=== PATIENT | female | born 1980 | race Caucasian/White ===

== ENCOUNTER 2016-10-08 15:55 | Emergency (ER) | payer BC ==
[2016-10-08] MEDS ORDERED: Aspirin Low Dose CHEW TAB* 81 MG PO ONE (15:58)
--- NOTE | 2016-10-08 15:58 | UC ---
Cardiac HPI - HPI Summary HPI Summary: 36 YEAR OLD FEMALE PRESENTS WITH LEFT SIDED CHEST PAIN. - History of Current Complaint Stated Complaint: chest pain Time Seen by Provider: 10/08/16 15:56 Hx Obtained From: Patient Hx Last Menstrual Period: 12/07/15 Onset/Duration: Sudden Onset Timing: Constant Initial Severity: Moderate Current Severity: Moderate Aggravating: Movement Alleviating: Rest Associated Signs & Symptoms: Positive: Chest Pain - Allergy/Home Medications Allergies/Adverse Reactions: Allergies Allergy/AdvReac Type Severity Reaction Status Date / Time Latex Allergy Blisters Verified 10/08/16 16:10 Home Medications: Home Medications [id number] [Excedrin Extra Strength] 2 tab PO ONCE PRN 10/08 [History Confirmed 10/08/16] PMH/Surg Hx/FS Hx/Imm Hx Previously Healthy: Yes - Surgical History Surgical History: Yes Surgery Procedure, Year, and Place: Right benign masses of breast removed 02/2013 - Family History Known Family History: Negative: Cardiac Disease, Hypertension, Diabetes - Social History Alcohol Use: Rare Substance Use Type: None Smoking Status (MU): Never Smoked Tobacco Have You Smoked in the Last Year: No Review of Systems Constitutional: Negative Skin: Negative Eyes: Negative ENT: Negative Respiratory: Negative Cardiovascular: Chest Pain Gastrointestinal: Negative Genitourinary: Negative Motor: Negative Neurovascular: Negative Musculoskeletal: Negative Neurological: Negative Psychological: Negative All Other Systems Reviewed And Are Negative: Yes Physical Exam Triage Information Reviewed: Yes Appearance: Well-Appearing Vital Signs Reviewed: Yes Eye Exam: Normal ENT Exam: Normal Dental Exam: Normal Neck exam: Normal Neck: Positive: 1 Respiratory Exam: Normal Cardiovascular Exam: Normal Abdominal Exam: Normal Musculoskeletal Exam: Normal Neurological Exam: Normal Psychological Exam: Normal Skin Exam: Normal - Clinical Impression Provider Diagnoses: LEFT CHEST PAIN Discharge - Discharge Plan Condition: Guarded Disposition: AGAINST MEDICAL ADVICE Patient Education Materials: Chest Pain (ED) Referrals: Marilou Ramsey [Primary Care Provider] - Additional Instructions: PLEASE GO TO ER TO RULE OUT AK. EMS REFUSED.
[2016-10-08 16:10] VITALS: BP 111/72
== END 2016-10-08 16:27 | disposition left against medical advice (07) ==
LOC: UCCORT 15:55
DX: R07.9 Chest pain, unspecified (principal); Z91.040 Latex allergy status
CPT/HCPCS: 93005; 99212; A9270-GY; G0463

== ENCOUNTER 2017-01-24 09:52 | Emergency (ER) | payer BC ==
[2017-01-24 10:28] VITALS: BP 135/64
--- NOTE | 2017-01-24 11:06 | UC ---
Respiratory Complaint HPI - HPI Summary HPI Summary: 36 female presents to the urgent care c/o nasal congestion, low grade fever, tire, dry cough for the past week. Pt reports she has had 2 episodes of diarrhea yesterday. she also has had nausea in the mornings. LMP: just ended. Her had a vasectomy 7 years ago. Pt has not taking anything to alleviating symptoms. Diarrhea resolved yesterday. She doesn't like to take the influenza vaccine since she gets sick all the time. Pt denies SOB, chest pain, abdominal pain, Vomiting. Pt works at [employer] and many of the student are sick with similar symptoms. - History of Current Complaint Chief Complaint: UCRespiratory Stated Complaint: SORE THROAT HEADACHE WEAK NAUSEA Time Seen by Provider: 01/24/17 10:48 Hx Obtained From: Patient Hx Last Menstrual Period: just ened 01/23 Onset/Duration: Gradual Onset, Lasting Weeks - 1 week, Still Present Severity Initially: Mild Severity Currently: Moderate Pain Intensity: 4 - headache Pain Scale Used: 0-10 Numeric Character: Cough: Nonproductive Aggravating Factors: Recumbent Position Alleviating Factors: Nothing Associated Signs And Symptoms: Positive: Fever, URI, Nasal Congestion - Risk Factors Pulmonary Embolism Risk Factors: Negative Cardiac Risk Factors: Negative Pseudomonas Risk Factors: Negative Tuberculosis Risk Factors: Negative - Allergies/Home Medications Allergies/Adverse Reactions: Allergies Allergy/AdvReac Type Severity Reaction Status Date / Time Latex Allergy Blisters Verified 10/08/16 16:10 PMH/Surg Hx/FS Hx/Imm Hx Previously Healthy: Yes - Pt denies PMHX - Surgical History Surgical History: Yes Surgery Procedure, Year, and Place: Right benign masses of breast removed 02/2013 - Family History Known Family History: Positive: None - Pr denies FMHX Negative: Cardiac Disease, Hypertension, Diabetes - Social History Occupation: Employed Full-time Lives: With Family Alcohol Use: Rare Substance Use Type: None Smoking Status (MU): Never Smoked Tobacco Have You Smoked in the Last Year: No Review of Systems Constitutional: Fever Skin: Negative Eyes: Negative ENT: Sore Throat, Ear Ache, Nasal Discharge - with clear nasal discharge Respiratory: Cough - dry Cardiovascular: Negative Gastrointestinal: Diarrhea - 2 episode which have resolved, Nausea - in the morning on and off Genitourinary: Negative Motor: Negative Neurovascular: Negative Musculoskeletal: Negative Neurological: Headache Psychological: Negative Is Patient Immunocompromised?: No All Other Systems Reviewed And Are Negative: Yes Physical Exam Triage Information Reviewed: Yes Vital Signs: Initial Vital Signs Temp 97.7 F 01/24/17 10:23 Pulse 96 01/24/17 10:23 Resp 16 01/24/17 10:23 BP 135/64 01/24/17 10:23 Pulse Ox 97 01/24/17 10:23 - Additional Comments VITAL SIGNS: Reviewed. GENERAL: Patient is a well developed and nourished female who is sitting comfortable in the examining table. Patient is not in any acute respiratory distress. HEAD AND FACE: No signs of trauma. No ecchymosis, hematomas or skull depressions. No sinus tenderness. edematous erythematous nasal mucosa, Positive clear post nasal drip. EYES: PERRLA, EOMI x 2, No injected conjunctiva, clear watery eyes, no nystagmus. No photophobia. EARS: Hearing grossly intact. Ear canals and tympanic membranes are within normal limits. MOUTH: pharynx with no erythema, no exudates,no palatal petechiae. no B/L tonsillar enlargement Uvula in midline. NECK: Supple, trachea is midline, Positive anterior cervical lymphadenopathy, no JVD, no carotid bruit, no c-spine tenderness, neck with full ROM. No meningeal signs, no Kernig's or brudzinskis signs. CHEST: Symmetric, no tenderness at palpation LUNGS: Clear to auscultation bilaterally. No wheezing or crackles. CVS: Regular rate and rhythm, S1 and S2 present, no murmurs or gallops appreciated. ABDOMEN: Soft, non-tender. No signs of distention. No rebound no guarding, and no masses palpated. Bowel sounds are normal. EXTREMITIES: FROM in all major joints, no edema, no cyanosis or clubbing. NEURO: Alert and oriented x 3. No acute neurological deficits. Speech is normal and follows commands. SKIN: Dry and warm UC Diagnostic Evaluation - Laboratory O2 Sat by Pulse Oximetry: 97 Respiratory Course/Dx - Course Course Of Treatment: 36 female presents to the urgent care c/o nasal congestion , low grade fever, tire, dry cough for the past week. Pt reports she has had 2 episodes of diarrhea yesterday. she also has had nausea in the mornings. LMP: just ended. Her had a vasectomy 7 years ago. Pt has not taking anything to alleviating symptoms. Diarrhea resolved yesterday. She doesn't like to take the influenza vaccine since she gets sick all the time. Pt denies SOB, chest pain, abdominal pain, Vomiting. Pt works at [employer] and many of the student are sick with similar symptoms. Hx obtaeind. Pt with urpper respiratory infection of examination. Pt Rx ibuprofen PO to alleviate QUIJANO and sore throat. Advised on hand washing to avoid spreading. Pt advised to rest , eat well and avoid strenuous exercise. If symptoms do not improve or worsen advised to return to the urgent care or f/u with her PCP for further evaluation and treatment. Pt understood and agreed - Differential Dx/Diagnosis Differential Diagnosis/HQI/PQRI: Asthma, Bronchitis, Influenza, Laryngitis, Lower Resp Infection, Sinusitis, Other - upper respiratory infection, pharyngitis, mononucleosis Provider Diagnoses: 1- Upper respiratory infection Discharge - Discharge Plan Condition: Stable Disposition: HOME Prescriptions: Ibuprofen TAB* [Motrin TAB* 600 MG] 600 mg PO Q6H PRN #20 tab PRN Reason: Headache Patient Education Materials: Upper Respiratory Infection (ED) Forms: *Work Release Referrals: No Primary Care Phys,NOPCP [Primary Care Provider] - [facility] [place] [facility] [Outside] - If Needed Additional Instructions: 1-Please take ibuprofen PO q6-8hrs prn as instructed after meals to alleviate QUIJANO and sore throat. Increase fluid intake, eat well, rest and avoid strenuous exercise 2-If symptoms do not improve or worsen please return to the urgent care or f/u with your PCP for further evaluation and treatment.
== END 2017-01-24 11:15 | disposition home or self-care (01) ==
LOC: UCEAST 09:52
DX: J06.9 Acute upper respiratory infection, unspecified (principal)
CPT/HCPCS: 99212; G0463

== ENCOUNTER 2017-04-08 12:47 | Emergency (ER) | payer BC ==
[2017-04-08 13:54] VITALS: BP 115/68
--- NOTE | 2017-04-08 15:09 | UC ---
Respiratory Complaint HPI - HPI Summary HPI Summary: sore throat, nonprod cough, diffuculty swallowing, nasal congestion, since . denies fever/chills - History of Current Complaint Chief Complaint: UCRespiratory Stated Complaint: RESPIRATORY Time Seen by Provider: 04/08/17 15:07 Hx Obtained From: Patient Hx Last Menstrual Period: 03/30/17 Onset/Duration: Sudden Onset Severity Initially: Moderate Severity Currently: Moderate Pain Intensity: 7 Character: Cough: Nonproductive Associated Signs And Symptoms: Positive: Negative - Risk Factors Pulmonary Embolism Risk Factors: Negative Cardiac Risk Factors: Negative Pseudomonas Risk Factors: Negative Tuberculosis Risk Factors: Negative - Allergies/Home Medications Allergies/Adverse Reactions: Allergies Allergy/AdvReac Type Severity Reaction Status Date / Time latex Allergy Blisters Verified 04/08/17 13:50 PMH/Surg Hx/FS Hx/Imm Hx Previously Healthy: Yes - Surgical History Surgical History: Yes Surgery Procedure, Year, and Place: Right benign masses of breast removed 02/2013 - Family History Known Family History: Positive: None - Pr denies FMHX Negative: Cardiac Disease, Hypertension, Diabetes - Social History Occupation: Employed Full-time Lives: With Family Alcohol Use: Rare Substance Use Type: None Smoking Status (MU): Never Smoked Tobacco Have You Smoked in the Last Year: No Review of Systems Constitutional: Negative Skin: Negative Eyes: Negative ENT: Sore Throat, Ear Ache, Sinus Congestion Respiratory: Cough - nonprod Cardiovascular: Negative Gastrointestinal: Negative Genitourinary: Negative Musculoskeletal: Negative Neurological: Negative Psychological: Negative All Other Systems Reviewed And Are Negative: Yes Physical Exam Triage Information Reviewed: Yes Appearance: Ill-Appearing Vital Signs: Initial Vital Signs Temp 99.1 F 04/08/17 13:50 Pulse 97 04/08/17 13:50 Resp 18 04/08/17 13:50 BP 115/68 04/08/17 13:50 Pulse Ox 99 04/08/17 13:50 Vital Signs Reviewed: Yes Eye Exam: Normal ENT: Positive: Pharyngeal erythema, Nasal congestion, TM bulging - brijesh, Hoarse voice Respiratory Exam: Normal Cardiovascular Exam: Normal Neurological Exam: Normal Psychological Exam: Normal Skin Exam: Normal UC Diagnostic Evaluation - Laboratory O2 Sat by Pulse Oximetry: 99 Respiratory Course/Dx - Course Course Of Treatment: take abx as directed - with food to reduce gi upset. strep - via exam. increase fluid intake daily while on abx to prevent dehydration. take ibuprofen or tylenol every 4-6 hrs prn pain/fever - dose as directed on bottle. f/u if symptoms not resolving - Differential Dx/Diagnosis Provider Diagnoses: strep throat/sinusitis Discharge - Discharge Plan Condition: Good Disposition: HOME Prescriptions: Amoxicillin PO (*) [Amoxicillin 875 MG (*)] 875 mg PO BID 10 Days #20 tab Patient Education Materials: Sinusitis (ED), Strep Throat (ED) Referrals: No Primary Care Phys,NOPCP [Primary Care Provider] - 1 Week (pcp referral )
== END 2017-04-08 15:29 | disposition home or self-care (01) ==
LOC: UCCORT 12:47
DX: Z91.040 Latex allergy status (principal); J02.0 Streptococcal pharyngitis; J32.9 Chronic sinusitis, unspecified
CPT/HCPCS: 99212; G0463

== ENCOUNTER 2017-06-17 10:05 | Emergency (ER) | payer BC ==
--- OUTSIDE RECORDS SUMMARY | 2017-06-17 10:14 | XMS REPORT ---
:1980 External Reference #:[id number] Author Organization [facility] Address [address] [place] [address] Phone [phone] Care Team Providers Name Role Phone HCP given Primary Care Physician Unavailable Payers Type Date Identification Numbers Payment Provider Subscriber Health Maintenance Policy Number: [id number] Vladimir Alcocer Organization (HMO) PayID: [id number] [address] [place] [address] Problems Description No Information Family History Date Family Member(s) Problem(s) Comments General Emotional Problems Mother's side of family Mother Emotional Problems Children 2 sons: Adis born 06/01/97; Sylvester born 08/25/00 Siblings 2 1 brother 1 sister Maternal Grandfather Alcoholism Maternal Grandfather Cancer Maternal Grandmother Cancer Maternal Grandmother Emotional Problems Social History Type Date Description Comments Education Highest Level Completed Trade School Education Highest Level Completed College Marital Status Lives With Sons x 2 Lives With Diet Healthy, Well Balanced Sleep Typically sleeps 6 hours a night Smoke-Free Home is smoke-free Smoke-Free Work is smoke-free Pets None Occupation [employer] Work Status Currently Working Hand Dominance Right-handed Abuse No history of abuse Cigarette Use Denies Cigarette Use ETOH Use Rarely consumes alcohol Recreational Drug Use Denies Drug Use Smoking Non Smoker Daily Caffeine Consumes on average 2 cups of coffee per day Exercise Type/Frequency Exercises regularly Sun Exposure Does not use sunscreen Seat Belt/Car Seat always uses seat belt Guns in Home No Smoke Alarms Yes smoke alarm Currently Active Patient is currently sexually active Contraceptive Methods Vasectomy Age 1st [place] 14 Years Old Allergies, Adverse Reactions, Alerts Date Description Reaction Status Severity Comments 02/06/2017 Latex Blisters active Moderate Medications Medication Date Status Form Strength Qnty SIG Indications Ordering Provider Phendimetrazine 06/12/ Active Caps ER 105mg 30cap 1 qam for E66.3 Silcoff, Tartrate ER 2018 24HR s weight loss Bri Lucero Phentermine HCL 03/16/ Active Capsules 15mg 60cap 2 in the E66.3 Silcoff, 2018 s morning or Nic can split M.D. the dose to 1 qam/q-after noon for weight management Multivitamin 02/05/ Active 2 po daily Unknown 2016 Vitamin B12 02/05/ Active 2 po daily Unknown 2016 Amoxicillin 04/08/ Hx Tablets 875mg 20tab 1 tablet by Unknown 2018 - s mouth twice 04/18/ daily x 10 2017 days Vital Signs Date Vital Result Comment 06/12/2017 BP Systolic 110 mmHg BP Diastolic 70 mmHg Weight 171.00 lb 05/15/2017 BP Systolic 108 mmHg BP Diastolic 72 mmHg Height 64 inches 5'4" Weight 171.00 lb BMI (Body Mass Index) 29.3 kg/m2 04/13/2017 BP Systolic 100 mmHg BP Diastolic 70 mmHg Heart Rate 90 /min Weight 176.00 lb 03/16/2017 BP Systolic 100 mmHg BP Diastolic 70 mmHg Weight 182.00 lb 02/06/2017 BP Systolic 104 mmHg BP Diastolic 66 mmHg Weight 186.00 lb 12/29/2016 BP Systolic 108 mmHg BP Diastolic 80 mmHg Height 64 inches 5'4" Weight 183.00 lb BMI (Body Mass Index) 31.4 kg/m2 Results Test Date Test Result H/L Range Note CBC Auto Diff 02/02/2017 White Blood Count 7.1 10^3/uL 3.5-10.8 Red Blood Count 4.34 10^6/uL 4.0-5.4 Hemoglobin 13.2 g/dL 12.0-16.0 Hematocrit 37 % 35-47 Mean Corpuscular Volume 86 fL 80-97 Mean Corpuscular Hemoglobin 31 pg 27-31 Mean Corpuscular HGB Conc 36 g/dL 31-36 Red Cell Distribution Width 13 % 10.5-15 Platelet Count 397 10^3/uL 150-450 Mean Platelet Volume 8 um3 7.4-10.4 Abs Neutrophils 4.9 10^3/uL 1.5-7.7 Abs Lymphocytes 1.6 10^3/uL 1.0-4.8 Abs Monocytes 0.3 10^3/uL 0-0.8 Abs Eosinophils 0.2 10^3/uL 0-0.6 Abs Basophils 0.1 10^3/uL 0-0.2 Abs Nucleated RBC 0 10^3/uL Granulocyte % 69.3 % 38-83 Lymphocyte % 22.5 % Low 25-47 Monocyte % 4.4 % 1-9 Eosinophil % 2.5 % 0-6 Basophil % 1.3 % 0-2 Nucleated Red Blood Cells % 0 Comp Metabolic Panel 02/02/2017 Sodium 135 mmol/L 133-145 Potassium 4.4 mmol/L 3.5-5.0 Chloride 102 mmol/L 101-111 Co2 Carbon Dioxide 26 mmol/L 22-32 Anion Gap 7 mmol/L 2-11 Glucose 90 mg/dL 70-100 Blood Urea Nitrogen 10 mg/dL 6-24 Creatinine 0.78 mg/dL 0.51-0.95 BUN/Creatinine Ratio 12.8 8-20 Calcium 9.1 mg/dL 8.6-10.3 Total Protein 6.9 g/dL 6.4-8.9 Albumin 4.3 g/dL 3.2-5.2 Globulin 2.6 g/dL 2-4 Albumin/Globulin Ratio 1.7 1-3 Total Bilirubin 0.50 mg/dL 0.2-1.0 Alkaline Phosphatase 44 U/L 34-104 Alt 17 U/L 7-52 Ast 16 U/L 13-39 Egfr Non- 82.7 >60 Egfr 106.3 >60 1 Laboratory test finding 02/02/2017 TSH (Thyroid Stim Horm) 2.02 mcIU/mL 0.34-5.60 Lipid Profile 02/02/2017 Triglycerides 135 mg/dL 2 (Trig/Chol/HDL) Cholesterol 153 mg/dL 3 HDL Cholesterol 42.8 mg/dL 4 LDL Cholesterol 83 mg/dL 5 1 Because ethnic data is not always readily available, this report includes an eGFR for both -Americans and non- Americans. The National Kidney Disease Education Program (NKDEP) does not endorse the use of the MDRD equation for patients that are not between the ages of 18 and 70, are , have extremes of body size, muscle mass, or nutritional status, or are non- or non-. According to the National Kidney Foundation, irrespective of diagnosis, the stage of the disease is based on the level of kidney function: Stage Description GFR(mL/min/1.73 m(2)) 1 Kidney damage with normal or decreased GFR 90 2 Kidney damage with mild decrease in GFR 60-89 3 Moderate decrease in GFR 30-59 4 Severe decrease in GFR 15-29 5 Kidney failure <15 (or dialysis) 2 Desirable: <150 Borderline High: 150-199 High: 200-499 Very High: >500 3 Desirable: <200 Borderline High: 200-239 High: >239 4 Low: <40 Desirable: 40-60 High: >60 5 Desirable: <100 Near Optimal: 100-129 Borderline High: 130-159 High: 160-189 Very High: >189 Procedures Date CPT Code Description Status 12/29/2016 58820 Electrocardiogram Complete Completed Encounters Type Date Location Provider CPT E/M Dx Office Visit 06/12/2017 4:00p Main [facility] 35448 E66.3 Z71.3 Z68.29 Office Visit 05/15/2017 4:00p Main Office [facility] 17586 E66.3 Z71.3 Office Visit 04/13/2017 4:20p Main Office [facility] 68554 Z71.3 Z68.30 Office Visit 03/16/2017 8:40a Main Office [facility] 69169 R63.5 F41.9 Z63.79 Z71.3 Office Visit 02/06/2017 9:00a Main Office [facility] 30089 F41.9 G47.9 R63.5 Office Visit 12/29/2016 8:00a Main Office [facility] 70152 R07.89 F41.9 Z13.220 R63.5 Z72.820 Z68.30 Plan of Care Future Appointment(s):07/13/2017 3:40 pm - [facility] at [id number] - [facility]E66.3 OverweightNew Medication:Phendimetrazine Tartrate ER 105 mgComments:Discussed the new medication and switching off of phentermine for a month at least to take a break.Reviewed SEs and benefits of phendimetrazine. pt stated understandingFollow up:Monitor calories in beverages Increase waLKING again, cont good food [id number] Dietary counseling and [id number] Body mass index (BMI) 29.0-29.9, adult
[2017-06-17 10:56] VITALS: BP 105/83
--- NOTE | 2017-06-17 12:22 | UC ---
UC Dental HPI - HPI Summary HPI Summary: Left sided facial swelling coming up from a broken tooth on the left upper bicuspid. Had a near syncopal episode this morning in the bathroom - History of Current Complaint Chief Complaint: UCDentalProblem Stated Complaint: ORAL COMPLAINT/FACIAL SWELLING Time Seen by Provider: 06/17/17 12:13 Hx Obtained From: Patient Hx Last Menstrual Period: 2 days over due Onset/Duration: Sudden Onset, Lasting Hours - 5, Worse Since - onset Severity: Severe Pain Intensity: 10 Aggravating Factor(s): Nothing Alleviating Factor(s): Nothing Related History: Previous Dental Care on Same Tooth - Allergies/Home Medications Allergies/Adverse Reactions: Allergies Allergy/AdvReac Type Severity Reaction Status Date / Time latex Allergy Blisters Verified 06/17/17 10:56 Home Medications: Home Medications Cyanocobalamin TAB* [Vitamin B12 TAB*] 200 mcg PO DAILY 06/17/17 [History Confirmed 06/17/17] Ibuprofen TAB* [Motrin TAB* 600 MG] 800 mg PO Q8H PRN 06/17/17 [History Confirmed 06/17/17] Multivitamins/Minerals TAB* [Theragran/minerals TAB*] 1 tab PO DAILY 06/17/17 [ History Confirmed 06/17/17] PMH/Surg Hx/FS Hx/Imm Hx Previously Healthy: Yes - Surgical History Surgical History: Yes Surgery Procedure, Year, and Place: Right benign masses of breast removed 02/2013 - Family History Known Family History: Positive: Hypertension, Diabetes Negative: Cardiac Disease - Social History Occupation: Employed Full-time Lives: With Family Alcohol Use: Rare Substance Use Type: None Smoking Status (MU): Never Smoked Tobacco Have You Smoked in the Last Year: No Review of Systems Constitutional: Chills, Fatigue ENT: Dental Pain Is Patient Immunocompromised?: No All Other Systems Reviewed And Are Negative: Yes Physical Exam Triage Information Reviewed: Yes Appearance: Well-Nourished, Ill-Appearing, Pain Distress Vital Signs: Initial Vital Signs Temp 98.8 F 06/17/17 10:46 Pulse 102 06/17/17 10:46 Resp 20 06/17/17 10:46 BP 105/83 06/17/17 10:46 Pulse Ox 100 06/17/17 10:46 Vital Signs Reviewed: Yes Eyes: Positive: Conjunctiva Clear ENT: Positive: Pharynx normal, TMs normal Dental: Positive: Dental Fracture @ - #11 and #12, Abscess @ - #12 extending up to the cheek Neck exam: Normal Respiratory Exam: Normal Cardiovascular Exam: Normal Musculoskeletal Exam: Normal Neurological Exam: Normal Psychological Exam: Normal Skin Exam: Normal Dental Complaint Course/Dx - Differential Dx/Diagnosis Differential Diagnosis/Dx: Dental Abscess, Dental Caries, Fractured Tooth, Pharyngitis Provider Diagnoses: Dental Abscess Discharge - Sign-Out/Discharge Documenting (check all that apply): Discharge/Admit/Transfer - Discharge Plan Condition: Stable Disposition: HOME Prescriptions: Amoxicillin/Clavulanate TAB* [Augmentin TAB 875*] 875 mg PO BID #20 tab Fluconazole [Fluconazole 150 mg tab] 150 mg PO ONCE #1 tab Patient Education Materials: Dental Abscess (ED), Amoxicillin/Clavulanate Potassium (By mouth) Referrals: Non Staff,Doctor [Primary Care Provider] - Additional Instructions: Take 1 imodium (or generic) with each augmentin to stop any diarrhea - Billing Disposition and Condition Condition: STABLE Disposition: HOME
== END 2017-06-17 12:36 | disposition home or self-care (01) ==
LOC: UCCORT 10:05
DX: K04.7 Periapical abscess without sinus (principal)
CPT/HCPCS: 99212; G0463

== ENCOUNTER 2017-06-18 08:01 | Emergency (ER) | payer BC ==
[2017-06-18] MEDS ORDERED: Ketorolac INJ* 60 MG/2 ML VIAL IM ONE (08:42)
--- NOTE | 2017-06-18 09:04 | ED ---
Throat Pain/Nasal Congestion - HPI Summary HPI Summary: 28 female presents ED with complaints of left-sided dental pain swelling. Patient states this began about a week ago when she fractured a tooth while eating some food. Patient has dental caries in the tooth. Side dentist and placed on amoxicillin and given ibuprofen for week supply in which she completed. Symptoms were relieved and improved however 2 days after not taking antibiotic patient symptoms returned. Seen at urgent care yesterday given Augmentin has only had 2 pills. States swelling has increased in the left maxillary area and pain hasn't increased. Has not taken any medications today. No discharge, erythema or palpable abscess. No fever, chills, nausea, vomiting. No other past medical history. No other complaints or concerns. No trouble breathing, trouble swallowing - History of Current Complaint Chief Complaint: EDDentalPain Time Seen by Provider: 06/18/17 08:12 Hx Obtained From: Patient Onset/Duration: Sudden Onset, Lasting Weeks, Still Present, Worse Since Severity: Moderate Associated Signs And Symptoms: Positive: Negative Cough: None - Allergies/Home Medications Allergies/Adverse Reactions: Allergies Allergy/AdvReac Type Severity Reaction Status Date / Time latex Allergy Blisters Verified 06/18/17 08:07 PMH/Surg Hx/FS Hx/Imm Hx Endocrine/Hematology History: Denies: Hx Diabetes Cardiovascular History: Denies: Hx Hypertension, Hx Valvular Heart Disease Respiratory History: Denies: Hx Asthma GI History: Reports: Other GI Disorders - acid reflux this last year History: Reports: Other Problems/Disorders - Hx of UTI's since 15 years ago. Pt denies any known conditions of her kidne - Surgical History Surgery Procedure, Year, and Place: Right benign masses of breast removed 02/2013 - Immunization History Immunizations Up to Date: Yes Infectious Disease History: No Infectious Disease History: Denies: History Other Infectious Disease, Traveled Outside the [place] in Last 30 Days - Family History Known Family History: Positive: None - Pr denies FMHX, Hypertension, Diabetes Negative: Cardiac Disease - Social History Alcohol Use: Rare Substance Use Type: Reports: None Smoking Status (MU): Never Smoked Tobacco Have You Smoked in the Last Year: No Review of Systems Constitutional: Negative Eyes: Negative Positive: Dental Pain Cardiovascular: Negative Respiratory: Negative Gastrointestinal: Negative Skin: Negative Neurological: Negative All Other Systems Reviewed And Are Negative: Yes Physical Exam Triage Information Reviewed: Yes Vital Signs On Initial Exam: Initial Vitals Temp Pulse Resp BP Pulse Ox 97.1 F 93 16 119/79 100 06/18/17 08:03 06/18/17 08:03 06/18/17 08:03 06/18/17 08:03 06/18/17 08:03 Vital Signs Reviewed: Yes Appearance: Positive: Well-Appearing, No Pain Distress, Well-Nourished Skin: Positive: Warm, Skin Color Reflects Adequate Perfusion, Dry. Negative: Cold, Numb, Cyanosis @, Erythema @ Head/Face: Positive: Other - Normal head and face inspection other than moderate amount of edema to the left maxillary/side face without erythema or palpable abscess. Tender to palpation.. Negative: Temporal Artery Tenderness, TMJ Tenderness, Scalp Eyes: Positive: Normal, EOMI, JODY, Conjunctiva Clear ENT: Positive: Normal ENT inspection, Hearing grossly normal, Pharynx normal, TMs normal, Uvula midline - Airway patent no sign of peritonsillar abscess. Negative: Nasal congestion, Nasal drainage, Tonsillar swelling, Tonsillar exudate, Sinus tenderness Dental: Positive: Percussion Tenderness @ - Left maxillary, Gross Decay/Caries @ , Dental Fracture @ - Tooth #13, Other - Edema over her left maxillary area and side of face as discussed above tender to touch tooth #13. Negative: Abscess @ - Not appreciated, Cellulitis @, Cervical Lymphadenopathy, Bleeding Neck: Positive: Supple, Nontender, No Lymphadenopathy Respiratory/Lung Sounds: Positive: Clear to Auscultation, Breath Sounds Present. Negative: Rales, Rhonchi, Tracheal Deviation, Wheezes Cardiovascular: Positive: Normal, RRR, Pulses are Symmetrical in both Upper and Lower Extremities. Negative: Murmur, Rub Abdomen Description: Positive: Soft Bowel Sounds: Positive: Present Musculoskeletal: Positive: Normal, Strength/ROM Intact Neurological: Positive: Normal, Sensory/Motor Intact, Alert, Oriented to Person Place, Time Diagnostics - Vital Signs Vital Signs Temp Pulse Resp BP Pulse Ox 06/18/17 08:03 97.1 F 93 16 119/79 100 - Laboratory Result Diagrams: 06/18/17 09:00 06/18/17 09:00 Lab Statement: Any lab studies that have been ordered have been reviewed, and results considered in the medical decision making process. - CT maxillofacial CT Interpretation: Positive (See Comments) - : MILDLY LIMITED EXAMINATION THIS EXAM WAS PERFORMED WITHOUT INTRAVENOUS CONTRAST. THERE IS SUBCUTANEOUS EDEMA AND SKIN INDURATION IN THE LEFT MAXILLARY REGION EXTENDING TO THE PRESEPTAL SOFT TISSUES OF THE LEFT ORBIT. THERE IS NO POST SEPTAL INVOLVEMENT. THERE IS NO LOCALIZED ABSCESS INVOLVEMENT. CT Interpretation Completed By: Radiologist Re-Evaluation - Re-Evaluation First Eval Re-Evaluation Time: 09:30 Change: Improved - Had some relief from Toradol updated on CT and labs ready to be DC'd. Aware of plan agrees and understands. EENT Course/Dx - Course Course Of Treatment: Labs and CT obtained due to recurrent symptoms after treatment. Labs unremarkable CT showed a cellulitis with edematous changes. Appears to be an infection from dental complications/possible abscess. Will treat with clindamycin, discontinue Augmentin. Given Toradol while in the ER had relief. Recommend cool compresses, saltwater gargles, and good oral hygiene. Continue naproxen starting tomorrow and she had Toradol that is enough for today. Patient agrees and understands plan. Normal vitals and physical exam otherwise. No other concerns. Has a dentist appointment, morning at 8 AM. Aware worsening signs and symptoms watch out for. Follow-up. - Differential Diagnoses Differential Diagnoses: Cellulitis, Dental Abscess, Dental Caries, Fractured Tooth, Trauma - Diagnoses Provider Diagnoses: Dental abscess, Cellulitis, Fractured tooth Discharge - Sign-Out/Discharge Documenting (check all that apply): Discharge/Admit/Transfer - Discharge Plan Condition: Good Disposition: HOME Prescriptions: Clindamycin Cap(NF) [Clindamycin Cap 300 mg Cap(NF)] 300 mg PO TID #29 cap Naproxen [Naproxen 375 mg tab] 375 mg PO BID PRN #25 tablet.dr CHOUDHURY Reason: Pain Patient Education Materials: Dental Abscess (ED), Cellulitis (ED) Referrals: Dillon Barrios MD [Primary Care Provider] - Adrian Roman MD [Doctor of Dental Medicine] - Additional Instructions: Take prescribed medication as directed, do not miss a dose. Take probiotics in between doses, and eat swiss yogurt as discussed to replenish normal chevy. Discontinue taking the augmentin. Salt water gargles, increase fluids, good oral hygiene. Cool compresses. Naproxen as prescribed to help with pain and inflammation, take with food. Follow up with dentist tomorrow. Any new or worsening symptoms please seek medical attention promptly. - Billing Disposition and Condition Condition: GOOD Disposition: HOME
--- NOTE | 2017-06-18 09:09 | RAD ---
INDICATION: Facial swelling COMPARISON: None TECHNIQUE: Axial source images were acquired from the vertex of the mandible through the orbits. Coronal and sagittal reconstructed images were acquired. The examination was ordered through the emergency department without intravenous contrast. FINDINGS: Bones: There is no acute facial bone fracture. Orbits: The globes and intraconal structures appear intact. There is preseptal soft tissue swelling. The optic nerves are symmetric. Extraocular muscles appear normal. There is no intraconal inflammatory change or retrobulbar mass.. Paranasal sinuses: There is mild circumferential mucosal thickening in the left maxillary antrum consistent with chronic sinusitis. The remainder the paranasal sinuses are clear. Brain: There are no acute abnormalities of the visualized brain parenchyma. Soft tissues: There is skin induration and there is simultaneous edema in the left maxillary region extending to the left orbital preseptal space. The findings are most consistent with cellulitis. There are no localized findings to suggest abscess. Other: None The visualized soft tissue elements about the neck appear normal. IMPRESSION: MILDLY LIMITED EXAMINATION THIS EXAM WAS PERFORMED WITHOUT INTRAVENOUS CONTRAST. THERE IS SUBCUTANEOUS EDEMA AND SKIN INDURATION IN THE LEFT MAXILLARY REGION EXTENDING TO THE PRESEPTAL SOFT TISSUES OF THE LEFT ORBIT. THERE IS NO POST SEPTAL INVOLVEMENT. THERE IS NO LOCALIZED ABSCESS INVOLVEMENT.
[2017-06-18 09:10] LABS: ABS Basophils 0.1 10^3/ul (0-0.2); ABS Eosinophils 0.2 10^3/ul (0-0.6); ABS Lymphocytes 1.6 10^3/ul (1.0-4.8); ABS Monocytes 0.5 10^3/ul (0-0.8); ABS Neutrophils 6.1 10^3/ul (1.5-7.7); ABS Nucleated RBC 0 10^3/ul; Hematocrit 37 % (35-47); Hemoglobin 13.3 g/dl (12.0-16.0); Lymphocyte % 18.9 % (25-47); Mean Corpuscular HGB Conc 36 g/dl (31-36); Mean Corpuscular Hemoglobin 31 pg (27-31); Mean Corpuscular Volume 86 fL (80-97); Mean Platelet Volume 6.9 um3 (7.4-10.4); Nucleated Red Blood Cells % 0; Platelet Count 438 10^3/ul (150-450); Red Blood Count 4.34 10^6/ul (4.0-5.4); Red Cell Distribution Width 13 % (10.5-15); White Blood Count 8.4 10^3/ul (3.5-10.8)
[2017-06-18 09:26] LABS: EGFR Non-African American 75.9 (>60)
[2017-06-18] MEDS ORDERED: Clindamycin CAP* 150 MG PO ONE (09:31)
[2017-06-18 10:11] VITALS: BP 107/84
== END 2017-06-18 09:52 | disposition home or self-care (01) ==
LOC: ED 08:01
DX: K04.7 Periapical abscess without sinus (principal); S02.5XXA Fracture of tooth (traumatic), initial encounter for closed fracture; K02.9 Dental caries, unspecified; X58.XXXA Exposure to other specified factors, initial encounter; Y92.9 Unspecified place or not applicable
CPT/HCPCS: 36415; 70486; 80048; 83605; 85025; 96372; 99282; A9270-GY; J1885

== ENCOUNTER → 2017-06-18 20:00 | Emergency (ER) | payer BC ==
[2017-06-18 23:53] VITALS: BP 000/00
== END | disposition left against medical advice (07) ==
LOC: ED 20:00
DX: R22.0 Localized swelling, mass and lump, head (principal); Z53.21 Procedure and treatment not carried out due to patient leaving prior to being seen by health care provider

== ENCOUNTER 2018-04-09 12:19 | Emergency (ER) | payer BC ==
--- NOTE | 2018-04-09 12:30 | UC ---
Throat Pain/Nasal Poli HPI - HPI Summary HPI Summary: 37 yo female presents with sinus pain/pressure/congestion for the last week. Over the last two days has felt fatigue and had a "low grade fever" of around 100F that resolves with tylenol/ibuprofen. She works at [employer] and many of the students have been sick with strep, mono, and the flu. She is concerned about these today. She denies sore throat, cough, SOB, abdominal pain , n/v, dysuria. She is eating and drinking well. - History of Current Complaint Stated Complaint: HEAD CONGESTION COUGH HEADACHE FEVER Time Seen by Provider: 04/09/18 12:29 Hx Obtained From: Patient Hx Last Menstrual Period: 2 days over due Onset/Duration: Gradual Onset Severity: Mild Pain Intensity: 3 Pain Scale Used: 0-10 Numeric - Allergies/Home Medications Allergies/Adverse Reactions: Allergies Allergy/AdvReac Type Severity Reaction Status Date / Time latex Allergy Blisters Verified 04/09/18 12:52 Home Medications: Home Medications Cyanocobalamin (Vitamin B-12) [B-12] 1,000 mcg PO DAILY WITH MEAL 04/09/18 [ History Confirmed 04/09/18] PMH/Surg Hx/FS Hx/Imm Hx - Additional Past Medical History Additional PMH: None - Surgical History Surgical History: Yes Surgery Procedure, Year, and Place: Right benign masses of breast removed 02/2013 - Family History Known Family History: Positive: Hypertension, Diabetes Negative: Cardiac Disease - Social History Occupation: Employed Full-time Lives: With Family Alcohol Use: Rare Substance Use Type: None Smoking Status (MU): Never Smoked Tobacco Have You Smoked in the Last Year: No Review of Systems All Other Systems Reviewed And Are Negative: Yes Constitutional: Positive: Fever, Fatigue Skin: Positive: Negative Eyes: Positive: Negative ENT: Positive: Nasal Discharge, Sinus Congestion, Sinus Pain/Tenderness Respiratory: Positive: Negative Cardiovascular: Positive: Negative Gastrointestinal: Positive: Negative Neurovascular: Positive: Negative Neurological: Positive: Negative Psychological: Positive: Negative Physical Exam - Summary Physical Exam Summary: GENERAL: NAD. WDWN. No pain distress. SKIN: No rashes, sores, lesions, or open wounds. HEENT: Head: AT/NC Eyes: EOM intact. Conjunctiva clear without inflammation or discharge. Ears: Hearing grossly normal. TMs intact, no bulging, erythema, or edema. Nose: Nasal mucosa mildly swollen and erythematous without discharge. TTP maxillary and frontal sinus. Positive post nasal drip Throat: Posterior oropharynx without exudates, erythema, or tonsillar enlargement. Uvula midline. NECK: Supple. Nontender. No lymphadenopathy. CHEST: CTAB. No r/r/w. No accessory muscle use. Breathing comfortably and in no distress. CV: RRR. Without m/r/g. Pulses intact. NEURO: Alert. PSYCH: Age appropriate behavior. Triage Information Reviewed: Yes Vital Signs: Vital Signs: Temp Pulse Resp BP Pulse Ox 100.3 F 100 18 115/79 97 04/09/18 12:48 04/09/18 12:48 04/09/18 12:48 04/09/18 12:48 04/09/18 12:48 Laboratory Tests 04/09/18 13:11 Influenza A (Rapid) Negative Influenza B (Rapid) Negative Vital Signs Reviewed: Yes Throat Pain/Nasal Course/Dx - Course Course Of Treatment: POC flu negative. Suspect sinusitis. - Differential Dx/Diagnosis Provider Diagnosis: Sinusitis Discharge - Sign-Out/Discharge Documenting (check all that apply): Patient Departure All imaging exams completed and their final reports reviewed: No Studies - Discharge Plan Condition: Stable Disposition: HOME Prescriptions: Amoxicillin PO (*) [Amoxicillin 875 MG (*)] 875 mg PO BID #14 tab Patient Education Materials: Sinusitis (ED) Referrals: Pao Pruitt PA [Primary Care Provider] - Additional Instructions: If you develop a fever, shortness of breath, chest pain, new or worsening symptoms - please call your PCP or go to the ED. Your test for flu was negative today. Continue taking tylenol/ibuprofen for your discomfort and fever. If your symptoms do not improve please be rechecked - Billing Disposition and Condition Condition: STABLE Disposition: Home
[2018-04-09 12:51] VITALS: BP 115/79
[2018-04-09 13:23] LABS: Influenza A Molecular NEGATIVE (Negative); Influenza B Molecular NEGATIVE (Negative)
== END 2018-04-09 13:28 | disposition home or self-care (01) ==
LOC: UCEAST 12:19
DX: J32.9 Chronic sinusitis, unspecified (principal); Z91.040 Latex allergy status
CPT/HCPCS: 99212; G0463